=== PATIENT | male | born 1950 | race Caucasian/White ===

== ENCOUNTER 2018-04-26 12:31 | Emergency (ER) | payer MEDICARE ==
[2018-04-26 13:48] VITALS: BP 125/76
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
[2018-04-26] MEDS ORDERED: Tetan/Diph/Pertus SYR(Tdap)* 0.5 ML SYR(BOOSTRIX) use SYR IM ONE (15:22)
--- NOTE | 2018-04-26 15:28 | RAD ---
INDICATION: Right shoulder injury COMPARISON: None TECHNIQUE: AP views were obtained. FINDINGS: There is a mildly displaced distal clavicular fracture. No other acute fractures are evident there is an old right sixth rib fracture. The AC joint is intact. The glenohumeral joint is intact. IMPRESSION: DISTAL RIGHT CLAVICULAR FRACTURE.
== END 2018-04-26 16:02 | disposition home or self-care (01) ==
LOC: UCCORT 12:31
DX: S42.031A Displaced fracture of lateral end of right clavicle, initial encounter for closed fracture (principal); V27.0XXA Motorcycle driver injured in collision with fixed or stationary object in nontraffic accident, initial encounter; Y93.89 Activity, other specified; Y92.410 Unspecified street and highway as the place of occurrence of the external cause; S50.311A Abrasion of right elbow, initial encounter; S60.512A Abrasion of left hand, initial encounter; S60.511A Abrasion of right hand, initial encounter; C95.90 Leukemia, unspecified not having achieved remission; Z87.891 Personal history of nicotine dependence
CPT/HCPCS: 90471; 90715; 99213; G0463